=== PATIENT | male | born 1985 | race Caucasian/White ===

== ENCOUNTER 2016-04-21 12:39 | Emergency (ER) | payer OTHER ==
[~2016-04-21] VITALS: Ht 188 cm; Wt 111.4 kg
[2016-04-21 12:46] VITALS: TEMP 98.4
[2016-04-21 14:12] VITALS: BP 130/80; PULSE 72
== END 2016-04-21 14:12 | disposition home or self-care (01) ==
LOC: COL.ER 12:39
DX: T18.128A Food in esophagus causing other injury, initial encounter (principal)
CPT/HCPCS: J1610